=== PATIENT | female | born 1965 | race Caucasian/White ===

== ENCOUNTER 2019-11-02 22:26 | Emergency (ER) | payer MEDICARE, MEDICAID ==
[~2019-11-02] VITALS: Ht 167.6 cm; Wt 68.0 kg
[2019-11-02 22:28] VITALS: BP 142/88
== END 2019-11-03 | disposition home or self-care (01) ==
LOC: ER 22:26
DX: R09.89 Other specified symptoms and signs involving the circulatory and respiratory systems (principal)
CPT/HCPCS: 70490; 99284